=== PATIENT | female | born 1935 | race Caucasian/White ===

== ENCOUNTER 2017-04-15 10:13 | Outpatient (CLI) | payer MEDICARE, OTHER ==
--- NOTE | 2017-04-15 12:43 | Ultrasound Report ---
LIMITED ABDOMINAL ULTRASOUND: 04/15/2017 CLINICAL INDICATION: Elevated LFTs. TECHNIQUE: Real-time scanning was performed with medical claims representative static images obtained. FINDINGS: The liver measures 13.5 cm. Hepatic echogenicity is diffusely increased. In the right lobe , there is a 2.6 x 1.5 x 1.5 cm hypoechoic lesion, without definite abnormal vascularity. This may re present focal fatty sparing, but the possibility of a true liver mass cannot be excluded. Consider MR I for further evaluation. The gallbladder is normal. The common bile duct measures 4 mm. The right ki dney measures 10.6 cm, and demonstrates no hydronephrosis. No free fluid is present. IMPRESSION: ECHOGENIC LIVER, WITH A REGION OF FOCAL FATTY SPARING OR FOCAL MASS IN THE ANTERIOR RIGH T LOBE. CONSIDER MRI FOR FURTHER EVALUATION. JOB #: [id number] EXT JOB #:[id number]
== END 2017-04-15 10:14 | disposition home or self-care (01) ==
LOC: DI 10:13
PROVIDERS: ATTEND Physician Assistant
DX: R94.5 Abnormal results of liver function studies (principal)
CPT/HCPCS: 76705

== ENCOUNTER 2017-07-11 11:50 | Outpatient (CLI) | payer MEDICARE, OTHER ==
[2017-07-11] MEDS ORDERED: GADOBUTROL 10 MMOL/10 ML VIAL ONE (12:09)
[2017-07-11 12:20] LABS: CREATININE 0.9 mg/dL (0.4-1.0)
[2017-07-11] MEDS ORDERED: GADOBUTROL 10 MMOL/10 ML VIAL IVP ONE (12:57)
--- NOTE | 2017-07-11 15:46 | MRI Report ---
EXAM: MR ABDOMEN WITH AND WITHOUT CONTRAST (MR PANCREAS AND MRCP) EXAM DATE: 07/11/2017 01:58 PM. CLINICAL HISTORY: Abnormal LFTS AND abnormal liver ultrasound with a mass lesion in the right lobe. COMPARISON: None. TECHNIQUE: Multiplanar breath-hold T1, T2, and DWI sequences obtained through the pancreas and abdome n on an MR scanner. Dedicated 2D and 3D MRCP sequences obtained through the biliary and pancreatic du cts. Images obtained before and after administration of 9 mL Gadavist intravenous contrast. Multiphas e postcontrast sequences obtained through the pancreas. FINDINGS: Lung Bases: The lung bases are clear. There is a small hiatal hernia. Liver: In the right lobe of the liver, the segment 6, there is an oval-shaped abnormal signal intensi ty 2.5 x 1.8 x 1.6 cm with iso-T1 to hyper signal intensities and early arterial phase hyperenhanceme nt without early washout. The remainder of the liver has diffuse fast suppressed signal without morph ology and contour changes. No other mass masses is seen. The intrahepatic ducts appear normal. CBD: The CBD appears normal and measures 4.6 mm in diameter. Gallbladder: The gallbladder is partially distended and appears normal with no wall thickening or sto ne. Pancreas: The pancreas appears normal with no mass. The pancreatic duct measures 2.1 mm in diameter a nd appears normal with no stone or stricture. Spleen: The spleen appears normal. Kidneys and Adrenals: The kidneys appear normal with no mass or hydronephrosis. There are no cysts in the kidneys. The adrenals appear normal. Bowel: The small bowel and colon appear normal with no inflammation or obstruction. Retroperitoneum: The retroperitoneal structures appear normal with no mass or lymphadenopathy. IMPRESSION: 1. A solid nodular hepatic lesion with hypervascular vasculature without early washout in the right l obe, 2.5 cm in maximal dimension corresponding to the mass lesion seen in the abdominal ultrasound ex am, the differential diagnosis would include hemangioma versus adenoma, less likely malignancy or aty pical appearance of focal nodular hyperplasia. Abdominal MRI follow-up in 4-6 months is recommended. 2. Diffuse hepatic steatosis without cirrhosis. 3. Small hiatal hernia. [facility] Referring Provider Line: [phone] SITE ID: [id number]
== END 2017-07-11 11:51 | disposition home or self-care (01) ==
LOC: LAB 11:50
PROVIDERS: ATTEND Physician Assistant
DX: K76.0 Fatty (change of) liver, not elsewhere classified (principal); K44.9 Diaphragmatic hernia without obstruction or gangrene
CPT/HCPCS: 36415; 74183; 82565; A9585